=== PATIENT | female | born 1940 | race Asian ===

== ENCOUNTER 2016-05-20 17:49 | Emergency (ER) | payer OTHER ==
[~2016-05-20] VITALS: Ht 154.9 cm; Wt 50.8 kg
[~2016-05-20 17:49] MED LIST: CALC-157 PO; [UNRECOGNIZED DRUG - CODE] PO
[2016-05-20 17:55] VITALS: BP_SYST 133
[2016-05-20 18:05] VITALS: BP_SYST 133
== END 2016-05-20 18:05 | disposition left against medical advice (07) ==
LOC: SED 17:49
DX: S65 Injury of blood vessels at wrist and hand level (principal); Z53.20 Procedure and treatment not carried out because of patient's decision for unspecified reasons; X58.XXXA Exposure to other specified factors, initial encounter; Y93.89 Activity, other specified; Y92.89 Other specified places as the place of occurrence of the external cause; Y99.8 Other external cause status
CPT/HCPCS: 99281